=== PATIENT | male | born 1950 | race Two or more races ===

== ENCOUNTER → 2019-12-16 | Emergency (ER) | payer OTHER ==
[~2019-12-16] VITALS: Ht 165.1 cm; Wt 67.1 kg
== END | disposition home or self-care (01) ==
LOC: ER 10:53
DX: B34.9 Viral infection, unspecified (principal); Z03.818 Encounter for observation for suspected exposure to other biological agents ruled out

== ENCOUNTER 2020-09-13 08:01 | Emergency (ER) | payer OTHER ==
[~2020-09-13] VITALS: Ht 165.1 cm; Wt 68.0 kg
== END 2020-09-13 13:57 | disposition home or self-care (01) ==
LOC: ER 08:01
DX: J22 Unspecified acute lower respiratory infection (principal); Z20.822 Contact with and (suspected) exposure to COVID-19; R05 Cough; R06.02 Shortness of breath

== ENCOUNTER 2020-09-13 11:38 | Outpatient (CLI) | payer OTHER | END 2020-09-13 15:37 | disposition home or self-care (01) | LOC: ASH CLINIC 11:38 | PROVIDERS: ATTEND Emergency Medicine | DX: Z23 Encounter for immunization (principal); U07.1 COVID-19 ==

== ENCOUNTER 2023-05-14 08:23 | Emergency (ER) | payer OTHER ==
[~2023-05-14] VITALS: Ht 165.1 cm; Wt 67.1 kg
[2023-05-14] MEDS ORDERED: GUAIFENESIN 200 MG/10 ML BLIST.PACK PO STA (09:12)
[2023-05-14] MEDS ORDERED: METHYLPREDNISOLONE SOD SUCC 125 MG VIAL IM STA (09:12)
[2023-05-14] MEDS ORDERED: ACETAMINOPHEN 500 MG GEL..CAP PO STA (09:13)
[2023-05-14] MEDS ORDERED: LEVALBUTEROL HCL 0.63 MG/3 ML SOLUTION IH SCH (09:15)
[2023-05-14 10:41] LABS: HEMATOCRIT 43.7 % (39.0-48.0); HEMOGLOBIN 15.1 g/dL (13-16.00); MEAN CELL VOLUME 96.4 fL (80.0-100.00); MEAN CORPUSCULAR HEMOGLOBIN 33.2 pg (27.00-32.0); MEAN CORPUSCULAR HGB CONC 34.4 g/dl (32.0-36.0); PLATELET COUNT 143 K/uL (150-450); RED BLOOD COUNT 4.54 M/uL (4.00-6.00); RED CELL DISTRIBUTION WIDTH 13.1 % (11.5-14.5)
[2023-05-14] MEDS ORDERED: ZITHROMAX500 MG PO (14:08)
== END 2023-05-14 14:22 | disposition home or self-care (01) ==
LOC: ER 08:24
PROVIDERS: General Practice
DX: R53.81 Other malaise (principal); R06.02 Shortness of breath; J22 Unspecified acute lower respiratory infection; Z20.822 Contact with and (suspected) exposure to COVID-19; I10 Essential (primary) hypertension
CPT/HCPCS: 36415; 71046; 94640; 96365; 99283; J2930

== ENCOUNTER 2024-01-30 15:06 | Emergency (ER) | payer OTHER ==
[~2024-01-30] VITALS: Ht 165.1 cm; Wt 67.1 kg
[~2024-01-30 15:06] MED LIST: ZITHROMAX500 MG PO
[2024-01-30] MEDS ORDERED: ATORVASTATIN CA20 MG PO (15:48)
[2024-01-30] MEDS ORDERED: ACETAMINOPHEN 500 MG GEL..CAP PO ONE (17:00)
[2024-01-30] MEDS ORDERED: BENZONATATE 100 MG CAPSULE PO ONE (17:00)
[2024-01-30 17:42] LABS: HEMOGLOBIN 14.2 g/dL (13-16.00); MEAN CELL VOLUME 96.3 fL (80.0-100.00); MEAN CORPUSCULAR HEMOGLOBIN 33.3 pg (27.00-32.0); MEAN CORPUSCULAR HGB CONC 34.6 g/dl (32.0-36.0); PLATELET COUNT 125 K/uL (150-450); RED BLOOD COUNT 4.26 M/uL (4.00-6.00); RED CELL DISTRIBUTION WIDTH 13.1 % (11.5-14.5)
== END 2024-01-30 18:26 | disposition home or self-care (01) ==
LOC: ER 15:06
PROVIDERS: General Practice
DX: J10.1 Influenza due to other identified influenza virus with other respiratory manifestations (principal); Z20.822 Contact with and (suspected) exposure to COVID-19